=== PATIENT | female | born 1975 | race Caucasian/White ===

== ENCOUNTER → 2018-04-22 10:50 | Outpatient (CLI) | payer BC, SELFPAY ==
--- NOTE | 2018-04-22 10:53 | MM_ITS ---
MM Dig screening mamm BI w/CAD CAD Screening ORDERING PHYSICIAN : Stanley Dalton MD PATIENT AGE: 42 years GENDER: Female INDICATION: 42-year-old with no new complaints. No hormones.. Family history. Paternal grandmother breast cancer age 72 COMPARISON: Baseline mammogram no previous for comparison TECHNIQUE: Standard CC and MLO images were obtained. R2 CAD reviewed. FINDINGS: RIGHT BREAST: Area Labeled A: 14 mm length x 6 mm wide x 9 mm height ovoid low density nodular area is seen at the upper-outer quadrant right breast. This is fairly low-density. Could reflect a small lipid cyst or lymph node or a small low-density cyst of some kind. Doubt significant solid nodule but would benefit from ultrasound to further evaluate. QuestionableArea Labeled B: Question a small area of some faint developing calcifications along with density right breast. This is seen centrally on the MLO view question early laterally on the AP view. Equivocal feature. I would suggest CC and MLO spot views of the the area labeled A;... Along with a magnification 90 degree view of the area labeled B LEFT BREAST:No areas of significant concern on the left follow-up one year on left adequate ------IMPRESSION: -------- Baseline mammogram RIGHT BREAST 1. Vague ovoid nodular density upper-outer quadrant left breast. Warrants spot views & ultrasound. This Area LABELED A 2. There also some questionable faint calcifications at the lateral left breast. Labeled B . Equivocal feature but would benefit from a 90 degrees spot view when patient returns LEFT BREAST: No areas of significant concern. Follow-up in one year recommended on left BI-RADS Categ : 0 Need Additional Imaging Evaluaiton. RECOMMENDED FOLLOW-UP: IMM - IMMEDIATE FOLLOW-UP RECOMMENDED Right mammogram Spot views and subsequent ultrasound (A letter has been sent to the patient regarding results of the study.)
== END ==
PROVIDERS: Family Provider Family Medicine; PCP Family Medicine; Visit Provider Family Medicine
DX: Z12.31 Encounter for screening mammogram for malignant neoplasm of breast (principal)
CPT/HCPCS: 77067

== ENCOUNTER → 2018-05-09 14:14 | Outpatient (CLI) | payer BC, SELFPAY ==
--- NOTE | 2018-05-09 14:27 | MM_ITS ---
MM Dig mamm BI DX w/CAD ORDERING PHYSICIAN : Stanley Dalton MD PATIENT AGE: 42 years GENDER: Female COMPARISON: Recent baseline screening mammogram 04/22/2018 INDICATION: Further evaluate nodularity right breast reported on screening mammogram TECHNIQUE: Spot CC , rolled spot 90 degree ML, and MLO images were obtained. R2 CAD reviewed. FINDINGS: RIGHT BREAST: The the vague asymmetric focal density labeled A in the upper-outer quadrant seems to dissipate on the rolled cc views and of less concern. Not of significant concern & can be followed The other density labeled B with some questionable calcifications is dissipates it is not evident on today's spot views. No significant calcifications identified right breast. Small area of nodularity the deep breast labeled C and measuring less 4.5 mm mm is most likely a small benign features such as intramammary node . Recommend follow-up right mammogram 6 months to confirm stability if these minor observations IMPRESSION: 1. Additional views decreased concern regarding any significant findings at the right breast. Follow-up in 6 months recommended to confirm stability of of the areas of vague density and benign-appearing nodularity right breast. BI-RADS Category: 3 Benign Finding Short Term Follow-up RECOMMENDED FOLLOW-UP: 6M 6 MONTH FOLLOW-UP (A letter has been sent to the patient regarding results of the study.)
== END ==
PROVIDERS: Family Provider Family Medicine; PCP Family Medicine; Visit Provider Family Medicine
DX: R92.8 Other abnormal and inconclusive findings on diagnostic imaging of breast (principal)
CPT/HCPCS: 77066

== ENCOUNTER → 2018-05-20 12:09 | Outpatient (CLI) | payer BC, SELFPAY ==
--- NOTE | 2018-05-20 12:22 | XR_ITS ---
XR foot LT min 3V HISTORY: ITS.REASON: LT FOOT PAIN ORDERING PHYSICIAN: Hodan Gerber PATIENT AGE: 42 years COMPARISON: None FINDINGS: There is a comminuted nondisplaced fracture involving optimal aspect of the proximal phalanx of the fifth digit with good alignment. No other significant anomalies. IMPRESSION: Comminuted nondisplaced fracture proximal phalanx fifth digit
== END ==
PROVIDERS: PCP Family Medicine; Visit Provider Nurse Practitioner Family
DX: M79.671 Pain in right foot (principal)
CPT/HCPCS: 73630

== ENCOUNTER → 2018-06-17 14:16 | Outpatient (CLI) | payer BC, SELFPAY ==
--- NOTE | 2018-06-17 14:22 | XR_ITS ---
XR foot LT min 3V HISTORY: Follow-up fracture ITS.REASON: FX FIFTH TOE ORDERING PHYSICIAN: Hodan Gerber PATIENT AGE: 42 years COMPARISON: 05/20/2018 FINDINGS: Nondisplaced fracture involves the proximal shaft of the proximal phalanx of the fifth toe. Callus formation is developing laterally. There is good alignment. Fracture line is visible at the base of the shaft of the phalanx. No other significant anomalies are evident aside from mild osteoarthritic changes of the first metatarsophalangeal joint. Hypertrophic changes are also present dorsally at the tarsal metatarsal junction. IMPRESSION: Healing nondisplaced fifth toe fracture
== END ==
PROVIDERS: PCP Family Medicine; Visit Provider Nurse Practitioner Family
DX: S92.502A Displaced unspecified fracture of left lesser toe(s), initial encounter for closed fracture (principal)
CPT/HCPCS: 73630

== ENCOUNTER 2020-03-04 09:07 | Emergency (ER) | payer OTHER, SELFPAY ==
[2020-03-04 09:38] VITALS: BP 145/79; PULSE 89; RESP 18; TEMP 36.8; O2SAT 98; BMI 35.5
--- NOTE | 2020-03-04 09:48 | XR_ITS ---
PROCEDURE: XR CHEST 2V CLINICAL HISTORY: sob Shortness of breath, smoker COMPARISON: CXR2V XR chest 2V from 07/12/2018 FINDINGS: The cardiomediastinal silhouette and pulmonary vascularity are within normal limits. The lungs are clear without infiltrates, suspicious nodules, or pleural effusions. There are minimal atelectatic changes in the left lower lobe. There is minimal thickening of the right minor fissure. Mild degenerative changes thoracic spine. IMPRESSION: Mild left basilar atelectasis or fibrosis Dictated by: Sam Davidson MD 03/04/2020 12:03 Electronically signed by Sam Davidson MD in [place] 03/04/2020 12:03
--- NOTE | 2020-03-04 09:52 | ECG_ITS ---
APPROVED REPORT Exam: Resting ECG HR:81 bpm ECG Measurements Heart Rate 81 AXES CA 134 P 26 QRSd 74 QRS 32 QT 364 T -11 QTc 422 <Conclusion> Normal sinus rhythm T wave abnormality, consider inferior ischemia Abnormal ECG Electronically signed by : Lester Grady, 03/05/2020 08:05:59
--- NOTE | 2020-03-04 09:55 | HMH.EDGENADL ---
ED Disposition Clinical Impression: Pyelonephritis Disposition: Home, Self-Care Condition on Discharge: Good Instructions: DI for Kidney Infection Additional Instructions: Tylenol for fever. Rest and drink plenty of fluids. Antibiotic as prescribed. Additional instructions for URINARY TRACT INFECTION: See your physician in 2-3 days for follow up and culture results. Return immediately if you have an uncontrollable fever greater than 102 degrees, severe back or abdominal pain, inability to urinate, or repetitive vomiting. Also return if severe cough or shortness of breath. Prescriptions: Cefdinir [Omnicef 300mg Capsule] 300 mg PO BID #20 cap Transmission Status: Pending to [facility] #[id number] Referrals: Stanley Dalton MD [Primary Care Provider] - - Critical Care Critical Care Time: No Attestation: On 03/04/20, the high probability of a clinically significant, sudden or life threatening deterioration of the following system(s) required my full and direct attention, intervention and personal management. The time I documented below is in addition to time spent performing reported procedures but includes the following listed in this critical care notation. Medical Decision Making - Seth Inquiry Pt receiving controlled substance: No Vital Signs: 03/04/20 09:38 Temperature 98.3 F Temperature Source Oral Pulse Rate [Left Radial] 89 Respiratory Rate 18 Blood Pressure [Right Arm] 145/79 H Blood Pressure Mean [Right Arm] 101 Blood Pressure Position [Right Arm] Sitting 02 Sat by Pulse Oximetry 98 Oxygen Delivery Method Room Air - Lab Data Lab Results 03/04/20 09:30: WBC 15.2 H, RBC 5.01, Hgb 15.2, Hct 45.8, MCV 91.5, MCH 30.3, MCHC 33.2, RDW 13.3, Plt Count 276, MPV 9.1, Neut % (Auto) 76.9, Lymph % (Auto) 12.6, Ward % (Auto) 9.4 H, Eos % (Auto) 0.9, Baso % (Auto) 0.3, Neut # (Auto) 11.7 H, Lymph # (Auto) 1.9, Ward # (Auto) 1.4 H, Eos # (Auto) 0.1, Baso # (Auto) 0.0 03/04/20 09:30: Sodium 136, Potassium 4.1, Chloride 107, Carbon Dioxide 21 L, Anion Gap 12.1, BUN 11, Creatinine 0.90, Estimated Creat Clear 127, Estimated GFR 68, Est GFR ( Amer) 83, Glucose 119 H, Calcium 9.4, Total Bilirubin 0.7, AST 28, ALT 24, Alkaline Phosphatase 86, Troponin I < 0.01, Total Protein 7.6, Albumin 4.0, Globulin 3.6 H, Albumin/Globulin Ratio 1.1, Amylase 34 03/04/20 09:30: Urine Color Yellow, Urine Appearance Sl cloudy, Urine pH 6.0, Ur Specific [place] 1.025, Urine Protein Trace, Urine Glucose (UA) Negative, Urine Ketones Negative, Urine Blood 3+, Urine Nitrate Positive, Urine Bilirubin Negative, Urine Urobilinogen 0.2, Ur Leukocyte Esterase 1+ A, Urine RBC 5-10, Urine WBC 3-5, Ur Squamous Epith Cells 3-5, Urine Bacteria 1+ 03/04/20 09:30: Lactate 1.4 03/04/20 09:30: Lipase 25 03/04/20 09:30: Influenza Type A Ag Negative, Influenza Type B Ag Negative 03/04/20 09:30: Urine HCG, Qual Negative Result diagrams: 03/04/20 09:30 03/04/20 09:30 Orders (Tests/Meds): ED MEDICATIONS Generic Name Dose Route Start Last Admin Trade Name Freq PRN Reason Stop Dose Admin Ceftriaxone Sodium 1 gm/ 50 mls @ 100 mls/hr 03/04/20 10:32 Sodium Chloride IV 03/04/20 11:01 ONCE ONE Protocol ORDERS Category Date Time Status Chest XR 2 view (NOT portable) [XR chest 2V] Stat Exams 03/04/20 09:48 Taken CBC w/Auto Diff [Complete Blood Count Auto Diff] Stat Lab 03/04/20 09:30 Results Troponin I Q3H Lab 03/04/20 13:00 Ordered Troponin I Q3H Lab 03/04/20 16:00 Ordered Blood Culture Stat Micro 03/04/20 09:30 Received Urine Culture Stat Micro 03/04/20 09:30 Received - Radiology Data #1 Image(s): Chest Image Reviewed: Yes I reviewed the patient's radiology image Linear atelectasis versus scar right midlung. No acute infiltrate seen. - ECG Data Tracing #1 EKG interpreted by Quang Tony MD: Rhythm: sinus Rate: 81 [place]: normal Ectopy: none Conduction: normal ST Segment
[2020-03-04 10:01] LABS: Microscopic, Urine URINE MICROSCOPIC (MICROSCOPIC)
[2020-03-04 10:04] LABS: Appearance,Urine SL CLOUDY (Clear); Basophils % 0.3 % (0.1-2.0); Bilirubin,Urine Negative (Negative); Blood, Urine 3+ (Negative); Color,Urine YELLOW (Yellow); Eosinophils # 0.1 K/mm3 (0.0-0.4); Eosinophils % 0.9 % (0.1-12.0); Glucose,Urine (UA) Negative (Negative); Hematocrit 45.8 % (37.0-47.0); Hemoglobin 15.2 g/dL (12.2-16.2); Ketones,Urine Negative (Negative); Leukocyte Esterase,Urine 1+ (Negative); Lymphocytes # 1.9 K/mm3 (0.7-4.5); Lymphocytes % 12.6 % (10-50); Mean Corpuscular HGB Conc 33.2 g/dL (31.8-35.4); Mean Corpuscular Hemoglobin 30.3 pg (27.0-31.2); Mean Corpuscular Volume 91.5 fl (81-99); Mean Platelet Volume 9.1 fl (7.4-10.4); Monocytes # 1.4 K/mm3 (0.1-1.0); Monocytes % 9.4 % (1.7-9.3); Neutrophils # 11.7 K/mm3 (1.8-7.8); Neutrophils % 76.9 % (37.0-80.0); Nitrate,Urine POSITIVE (Negative); Platelet Count 276 K/mm3 (142-424); Protein,Urine TRACE (Negative); Red Blood Count 5.01 M/mm3 (4.20-5.40); Red Cell Distribution Width 13.3 % (11.5-17.5); Specific Gravity, Urine 1.025 (1.005-1.030); Urobilinogen,Urine 0.2 EU/dl (0.2); White Blood Count 15.2 K/mm3 (4.8-10.8)
[2020-03-04 10:05] LABS: MANUAL DIFFERENTIAL MANUAL DIFFERENTIAL (MANUAL DIFF)
[2020-03-04 10:08] LABS: Chloride 107 mmol/L (98-107); Potassium 4.1 mmoL/L (3.5-5.1); Sodium 136 mmol/L (136-145)
[2020-03-04 10:09] LABS: Lipase 25 U/L (23-300)
[2020-03-04 10:10] LABS: Amylase 34 U/L (30-110)
[2020-03-04 10:11] LABS: Alanine Aminotransferase 24 U/L (12-78); Albumin/Globulin Ratio 1.1 (1.1-1.8); Alkaline Phosphatase 86 U/L (38-126); Anion Gap 12.1 mEq/L (5-15); Aspartate Amino Transferase 28 U/L (14-36); Bilirubin,Total 0.7 mg/dl (0.2-1.3); Blood Urea Nitrogen 11 mg/dl (7-17); Calcium 9.4 mg/dl (8.4-10.2); Carbon Dioxide 21 mmol/L (22.0-30.0); Creatinine Clearance Estimated 127 mL/min (50-200); Estimated Glomerular Filt Rate 68 ml/min (>60); GFR (African American) 83 ML/MIN (>60); Globulin 3.6 g/dL (1.3-3.2); Glucose 119 mg/dl (74-100); Total Protein,Serum 7.6 g/dl (6.3-8.2)
[2020-03-04 10:12] LABS: Lactic Acid 1.4 mmol/L (0.7-2.1)
[2020-03-04 10:13] LABS: Urine Pregnancy, HCG Qual. Negative (Negative)
[2020-03-04 10:22] LABS: Troponin I < 0.01 ng/ml (0.00-0.034)
--- NOTE | 2020-03-04 10:22 | PC.NURSE ---
Pt with rad.
[2020-03-04 10:28] LABS: Bacteria,Urine 1+ /lpf
[2020-03-04 11:06] LABS: Lymphocytes % 18 % (10-50); Monocytes % 9 % (2-9); Neutrophils % 73 % (42-76); Platelet Estimate Normal; RBC Morphology Normal; Total Cells Counted 100
[2020-03-04 11:10] VITALS: BP 122/85; PULSE 85; RESP 20; TEMP 36.8; O2SAT 98
== END 2020-03-04 11:11 | disposition home or self-care (01) ==
PROVIDERS: Emergency Provider Emergency Medicine; PCP Family Medicine
DX: N12 Tubulo-interstitial nephritis, not specified as acute or chronic (principal); F17.210 Nicotine dependence, cigarettes, uncomplicated
CPT/HCPCS: 71046; 80053; 81001; 81025; 82150; 83605; 83690; 84484; 85007; 85025; 87040; 87086; 87088; 87186; 87275; 87276; 93005; 96365; 96367; 99284

== ENCOUNTER → 2020-03-09 14:12 | Outpatient (CLI) | payer OTHER, SELFPAY ==
--- NOTE | 2020-03-09 14:15 | XR_ITS ---
PROCEDURE: XR HIP RT 2-3V W/PELVIS CLINICAL INDICATION: RT HIP PAIN Right hip pain worsening COMPARISON: No exams were available for comparison FINDINGS: An AP view of the pelvis shows mild osteoarthritic changes of both hips with an os acetabuli the right. No fracture or dislocation. Degenerative changes are present involving the left SI joint. No lytic or blastic change IMPRESSION: Mild osteoarthritis of the hips Dictated by: Sam Davidson MD 03/09/2020 17:36 Electronically signed by Sam Davidson MD in [place] 03/09/2020 17:36
== END ==
PROVIDERS: PCP Family Medicine; Visit Provider Family Medicine
DX: M25.551 Pain in right hip (principal)
CPT/HCPCS: 73502

== ENCOUNTER → 2020-08-20 14:57 | Outpatient (CLI) | payer OTHER, SELFPAY | PROVIDERS: PCP Family Medicine; Visit Provider Family Medicine | DX: G47.33 Obstructive sleep apnea (adult) (pediatric) (principal); R06.83 Snoring; E66.9 Obesity, unspecified | CPT/HCPCS: 95806 ==

== ENCOUNTER → 2021-06-13 11:53 | Outpatient (CLI) | payer OTHER, SELFPAY ==
--- NOTE | 2021-06-13 12:04 | XR_ITS ---
PROCEDURE: XR LUMBAR SPINE MIN 4V CLINICAL INDICATION: MYALGIA COMPARISON: CT ABDPELWO CT abdomen pelvis wo con from 07/13/2018 CR XR CHEST 2V from 03/04/2020 FINDINGS: There is normal alignment. There is degenerative disc disease and T10-T11 and T11-T12 is well L1-L2 L2-L3, L3-L4, L4-5, and L5-S1. There are anterior osteophytes in the lower thoracic and lumbar spine. Facet arthritic changes are present at L4, L5, and S1. There is some moderate sclerosis involving the inferior aspect of the left SI joint and minimal sclerosis of the right SI joint. On the left posterior oblique view calcification projects over the right kidney measuring approximately 15 mm and may be due to right nephrolithiasis. IMPRESSION: Lumbar spondylosis as described above. Osteoarthritic changes of the SI joints. Suspected right nephrolithiasis which could be confirmed with CT. Dictated by: Sam Davidson MD 06/13/2021 13:50 Sam Davidson MD in [place] 06/13/2021 13:50
== END ==
PROVIDERS: PCP Family Medicine; Visit Provider Family Medicine
DX: M79.10 Myalgia, unspecified site (principal)
CPT/HCPCS: 72110

== ENCOUNTER → 2021-12-05 14:30 | Outpatient (CLI) | payer OTHER, SELFPAY ==
[2021-12-05 15:11] LABS: Basophils # 0.1 K/mm3 (0-0.2); Basophils % 2.4 % (0.1-2.0); Eosinophils # 0.1 K/mm3 (0.0-0.4); Eosinophils % 2.3 % (0.1-12.0); Hematocrit 50.7 % (37.0-47.0); Hemoglobin 16.2 g/dL (12.2-16.2); Lymphocytes # 1.9 K/mm3 (0.7-4.5); Lymphocytes % 37.6 % (10-50); Mean Corpuscular Hemoglobin 30.5 pg (27.0-31.2); Mean Corpuscular Volume 95.3 fl (81-99); Mean Platelet Volume 8.8 fl (7.4-10.4); Monocytes # 0.4 K/mm3 (0.1-1.0); Monocytes % 8.5 % (1.7-9.3); Neutrophils # 2.5 K/mm3 (1.8-7.8); Neutrophils % 49.1 % (37.0-80.0); Platelet Count 309 K/mm3 (142-424); Red Blood Count 5.32 M/mm3 (4.20-5.40); White Blood Count 5.2 K/mm3 (4.8-10.8)
== END ==
PROVIDERS: PCP Family Medicine; Visit Provider Family Medicine
DX: Z20.822 Contact with and (suspected) exposure to COVID-19 (principal)
CPT/HCPCS: 36415; 85025; C9803; U0003; U0005

== ENCOUNTER → 2022-05-09 09:45 | Outpatient (CLI) | payer OTHER, SELFPAY ==
--- NOTE | 2022-05-09 09:48 | US_ITS ---
FINAL REPORT CLINICAL HISTORY: FATTY LIVER FINDINGS: Sonographic images of the right upper quadrant were obtained. The pancreas is partially obscured.The liver is fatty infiltrated.The gallbladder contains sludge.There is no evidence of biliary ductal dilatation.The common duct measures 3 mm. At the right kidney measures 10 cm and is unremarkable. IMPRESSION: Fatty infiltration of the liver. Gallbladder sludge. Reviewed, Interpreted and Dictated by Shailesh Grider III, MD Transcribed by Lynne Cruz Authenticated and [facility]
== END ==
PROVIDERS: PCP Family Medicine; Visit Provider Internal Medicine Gastroenterology
DX: K76.0 Fatty (change of) liver, not elsewhere classified (principal)
CPT/HCPCS: 76705

== ENCOUNTER 2022-05-11 04:21 | Emergency (ER) | payer OTHER, SELFPAY ==
[2022-05-11] VITALS (13 sets, daily range): BP systolic 93–147; BP diastolic 50–83; PULSE 56–71; RESP 16; TEMP 36.8; O2SAT 96–100; BMI 36.8
--- NOTE | 2022-05-11 04:18 | ECG_ITS ---
APPROVED REPORT Exam: Resting ECG HR:61 bpm ECG Measurements Heart Rate 61 AXES MT 143 P 69 QRSd 75 QRS 28 QT 397 T -75 QTc 400 Conclusion SINUS RHYTHM POSSIBLE RIGHT VENTRICULAR CONDUCTION DELAY [RSR (QR) IN V1/V2] Inferior T wave changes noted previously Abn ecg Electronically signed by : Lester Grady MD 05/11/2022 08:24:45
--- NOTE | 2022-05-11 04:22 | XR_ITS ---
PROCEDURE INFORMATION: Exam: XR Chest Exam date and time: 05/11/2022 4:32 AM Age: 46 years old Clinical indication: Sternal or substernal pain; Prior surgery; Surgery date: 3-7 days post-operative; Surgery type: Stents; Additional info: Cp TECHNIQUE: Imaging protocol: Radiologic exam of the chest. Views: 1 view. COMPARISON: CR XR CHEST 2V 03/04/2020 10:13 AM FINDINGS: Lungs: Mild linear atelectasis/fibrosis. No new focal consolidation. Pleural spaces: No pneumothorax. Heart/Mediastinum: Unremarkable. No cardiomegaly. Bones/joints: No acute fracture. IMPRESSION: No acute process.
[2022-05-11 04:40] LABS: Basophils # 0.2 K/mm3 (0-0.2); Basophils % 2.2 % (0.1-2.0); Eosinophils # 0.2 K/mm3 (0.0-0.4); Eosinophils % 1.4 % (0.1-12.0); Hematocrit 50.2 % (37.0-47.0); Lymphocytes # 4.6 K/mm3 (0.7-4.5); Mean Corpuscular HGB Conc 33.8 g/dL (31.8-35.4); Mean Corpuscular Hemoglobin 31.4 pg (27.0-31.2); Mean Corpuscular Volume 92.8 fl (81-99); Mean Platelet Volume 8.2 fl (7.4-10.4); Monocytes # 0.6 K/mm3 (0.1-1.0); Monocytes % 5.6 % (1.7-9.3); Neutrophils # 5.3 K/mm3 (1.8-7.8); Neutrophils % 48.7 % (37.0-80.0); Platelet Count 376 K/mm3 (142-424); Red Blood Count 5.41 M/mm3 (4.20-5.40); Red Cell Distribution Width 13.8 % (11.5-17.5); White Blood Count 10.9 K/mm3 (4.8-10.8)
[2022-05-11 04:47] LABS: Anion Gap 13.8 mEq/L (5-15); Blood Urea Nitrogen 11 mg/dl (7-17); Calcium 9.8 mg/dl (8.4-10.2); Carbon Dioxide 24 mmol/L (22.0-30.0); Chloride 102 mmol/L (98-107); Creatinine Clearance Estimated 120 mL/min (50-200); Estimated Glomerular Filt Rate 60 ml/min (>60); GFR (African American) 73 ML/MIN (>60); Glucose 120 mg/dl (74-100); Potassium 3.8 mmoL/L (3.5-5.1); Sodium 136 mmol/L (136-145)
[2022-05-11 05:06] LABS: Troponin I 0.01 ng/ml (0.00-0.034)
--- NOTE | 2022-05-11 05:09 | PC.NURSE ---
rounded on pt at this time. Updated her on lab results. at bedside, pt is pain free and has no new needs.
--- NOTE | 2022-05-11 05:57 | PC.NURSE ---
rounded on pt at this time and let her know we would be drawing her 2nd troponin in approx. 30 mins. Pt denies any pain at this time and is agreeable with POC. No new needs
--- NOTE | 2022-05-11 07:05 | PC.NURSE ---
Updated pt on POC and that 2nd troponin would be back in approx. 5mins. No new needs at this time
[2022-05-11 07:10] LABS: Troponin I 0.06 ng/ml (0.00-0.034)
--- NOTE | 2022-05-11 07:13 | HMH.EDCP ---
ED Disposition Condition on Discharge: Good - Critical Care Critical Care Time: No <MiraRonni - Last Filed: 05/11/22 08:20> Condition on Discharge: Good - Critical Care Critical Care Time: No <RoldanHuang - Last Filed: 05/11/22 10:23> Clinical Impression: NSTEMI (non-ST elevated myocardial infarction) Chest pain Qualifiers: Chest pain type: precordial pain Qualified Code(s): R07.2 - Precordial pain CAD (coronary artery disease) Qualifiers: Coronary Disease-Associated Artery/Lesion type: [place] artery [place] vs. transplanted heart: [place] heart Associated angina: without angina Qualified Code(s): I25.10 - Atherosclerotic heart disease of [place] coronary artery without angina pectoris Disposition: Xfer Short-Term Hosp Instructions: DI for Chest Pain Referrals: Stanley Dalton MD [Primary Care Provider] - Attestation: On 05/11/22, the high probability of a clinically significant, sudden or life threatening deterioration of the following system(s) required my full and direct attention, intervention and personal management. The time I documented below is in addition to time spent performing reported procedures but includes the following listed in this critical care notation. Medical Decision Making - Medical Records Medical records reviewed: Yes: I reviewed the patient's medical records. - Seth Inquiry Pt receiving controlled substance: No - Lab Data Lab results reviewed: Yes: I reviewed the patient's lab results. Result diagrams: 05/11/22 04:29 05/11/22 04:29 - Radiology Data #1 Image(s): Chest Image Reviewed: Yes I have reviewed radiologist's interpretation Preliminary Findings: Normal/NAD - ECG Data Tracing #1 Normal Sinus Rhythm: Yes Ischemic changes: non-specific ST-T wave changes, t wave inversions ECG compared to prior tracings: there are no significant changes - Physician Consults Physician Consulted: card incident response engineer - dr varela Reason -: Pt condition <MiraRonni - Last Filed: 05/11/22 08:20> - Medical Records Medical records reviewed: Yes: I reviewed the patient's medical records. - Seth Bergeron Pt receiving controlled substance: No - Lab Data Result diagrams: 05/11/22 04:29 05/11/22 04:29 - Reevaluation(s) Time: 10:23 (reeval, vss, appears well, discussed with hospitalist [facility] accepts obs) <Sal Montilla - Last Filed: 05/11/22 10:23> Vital Signs: 05/11/22 04:21 05/11/22 04:25 05/11/22 05:56 Temperature 98.2 F Temperature Source Oral Pulse Rate 59 L 56 L Pulse Rate [Right] 62 Respiratory Rate 16 16 16 Blood Pressure 111/50 L 117/65 Blood Pressure [Right Arm] 138/83 Blood Pressure Mean Blood Pressure Mean [Right Arm] 101 Blood Pressure Source Automatic Cuff Automatic Cuff Blood Pressure Source [Right Arm] Automatic Cuff Blood Pressure Position Sitting Sitting Blood Pressure Position [Right Arm] Sitting 02 Sat by Pulse Oximetry 100 97 98 Oxygen Delivery Method Room Air Room Air 05/11/22 06:35 05/11/22 06:52 05/11/22 07:01 Temperature Temperature Source Pulse Rate 66 63 62 Pulse Rate [Right] Respiratory Rate 16 Blood Pressure 93/58 L 100/58 L 115/74 Blood Pressure [Right Arm] Blood Pressure Mean 69 85 Blood Pressure Mean [Right Arm] Blood Pressure Source Automatic Cuff Blood Pressure Source [Right Arm] Blood Pressure Position Sitting Blood Pressure Position [Right Arm] 02 Sat by Pulse Oximetry 99 98 96 Oxygen Delivery Method Room Air Room Air 05/11/22 07:30 05/11/22 08:02 05/11/22 08:30 Temperature Temperature Source Pulse Rate 65 67 71 Pulse Rate [Right] Respiratory Rate Blood Pressure 120/73 126/59 L 131/54 L Blood Pressure [Right Arm] Blood Pressure Mean 90 81 75 Blood Pressure Mean [Right Arm] Blood Pressure Source Blood Pressure Source [Right Arm] Blood Pressure Position Blood Pressure Position [Right Arm] 02 Sat by P
--- NOTE | 2022-05-11 07:25 | ECG_ITS ---
APPROVED REPORT Exam: Resting ECG HR:63 bpm ECG Measurements Heart Rate [address] 163 P 46 QRSd 82 QRS 44 QT 410 T -25 QTc 417 Conclusion SINUS RHYTHM MODERATE T-WAVE ABNORMALITY, CONSIDER LATERAL ISCHEMIA [-0.1+ mV T-WAVE IN I/aVL/V5/V6] ABNORMAL ECG UNCONFIRMED REPORT Electronically signed by : Lester Grady MD 05/11/2022 08:23:30
--- NOTE | 2022-05-11 07:30 | PC.NURSE ---
pt resting family at bedside offers no c/o at present
--- NOTE | 2022-05-11 07:42 | PC.NURSE ---
Calling [facility] to get in touch with 's S[employer] Drier Feeder, Dr. Gutierrez or whomever may be fire protection specialist for them this date. Awaiting a call back
--- NOTE | 2022-05-11 07:49 | PC.NURSE ---
Dr. Meyers speaking with Dr. Altamirano, Machine Shop Supervisor from [facility] at this time
--- NOTE | 2022-05-11 07:55 | PC.NURSE ---
Dr. Meyers speaking to patient at BS regarding update on POC
--- NOTE | 2022-05-11 09:20 | PC.NURSE ---
3rd trop drawn pt offers no c/o at present
--- NOTE | 2022-05-11 10:02 | PC.NURSE ---
Spoke with Lissa with [facility] to have the non linear editor assistant editor paged again regarding patients 3rd troponin enzymes
--- NOTE | 2022-05-11 10:13 | PC.NURSE ---
Lissa with the [facility] called us back to have the ER MD speak with the hospitalist at this time, she reports the Physician requested for the hospitalist for possible patient transfer. Dr. Montilla is speaking with Dr. Pandey.
--- NOTE | 2022-05-11 10:16 | PC.NURSE ---
family at BS; patient up talking on the phone, has no needs at this time.
--- NOTE | 2022-05-11 10:28 | PC.NURSE ---
Awaitng a call back from [facility] regarding bed status
--- NOTE | 2022-05-11 10:29 | PC.NURSE ---
Faxed pt facesheet to [facility] access center: [phone]
--- NOTE | 2022-05-11 10:40 | PC.NURSE ---
spoke with hope in [facility] and she gave me a bad assignment and number to call report
--- NOTE | 2022-05-11 10:45 | PC.NURSE ---
updated pt on POC
[2022-05-11 10:50] LABS: Coronavirus 19, PCR Not Detected (NotDetected); Influenza A, PCR Not Detected (NotDetected); Influenza B, PCR Not Detected (NotDetected)
--- NOTE | 2022-05-11 10:52 | PC.NURSE ---
report called to [facility]
--- NOTE | 2022-05-11 11:05 | PC.NURSE ---
Called Radiology for disc; placed in packet
--- NOTE | 2022-05-11 11:23 | PC.NURSE ---
[facility]
== END 2022-05-11 11:29 | disposition short-term general hospital (02) ==
PROVIDERS: Emergency Provider Emergency Medicine; PCP Family Medicine
DX: R07.2 Precordial pain (principal); I25.10 Atherosclerotic heart disease of native coronary artery without angina pectoris; Z79.82 Long term (current) use of aspirin; Z79.899 Other long term (current) drug therapy; G43.909 Migraine, unspecified, not intractable, without status migrainosus
CPT/HCPCS: 71045; 80048; 84484; 85025; 93005; 96372; 99283; C9803; U0003; U0005

== ENCOUNTER 2022-05-26 08:11 | Day surgery (SDC) | payer OTHER, SELFPAY ==
[2022-05-26] VITALS (54 sets, daily range): BP systolic 100–218; BP diastolic 57–134; PULSE 99–116; RESP 10–32; TEMP -17.7–0; O2SAT 94–100; BMI 34.9
--- NOTE | 2022-05-26 | IR_ITS ---
APPROVED REPORT Patient Location: Emergent [place] Man: YAYO Pena RT (R) PROCEDURES Left ventriculogram Selective coronary angiogram Left heart catheterization Right femoral arterial access Placement of intra-aortic balloon pump Left femoral arterial access Removal of intra-aortic balloon pump INDICATION Sudden cardiac , Cardiogenic shock, Known coronary artery disease, Status post cardiac resuscitation Informed consent was obtained prior to the procedure. TECHNIQUE Patient was in the emergency room and presented in full cardiac arrest with chest compressions after sustaining what appeared to be a V. fib arrest. Patient's administered CPR and witnessed patient's sudden cardiac . When EMS arrived it is reported patient was in V. fib arrest and CPR was initiated. I was contacted after patient had adventist of blood pressure. Upon arrival in the emergency department patient was intubated and in PEA. Epinephrine restored blood pressure. At this point it was decided to place an intra-aortic balloon pump. It was known patient had bilateral iliac artery stents the day before and apparently a cardiac stent for what sounds like a myocardial infarction within the last month. While in the emergency department the right groin was sterilely prepped and the right femoral artery was accessed via the Salinger technique. An intra-aortic balloon pump was estimated for placement and then inserted and placed in a one-to-one ratio. Patient had adventist of blood pressure and was immediately taken to the [facility] for diagnostic and possible therapeutic angiography. While in the emergency department 1% lidocaine was used anesthetize the left groin the left femoral was accessed via the sounder technique and a 6 [place] sheath was placed in the left femoral artery. The JR4 JR4 catheter was used to perform left heart catheterization left ventriculogram and selective coronary angiogram. At the end of the procedure after seeing patient had VIKRAM-3 flow down all the coronary arteries with normal to slightly hyperdynamic ventricular function as well as hypertension with blood pressure is 189/113 it was decided to pull the intra-aortic balloon pump. At bedside echo also confirmed hyperdynamic ventricular function with no associated regional wall motion abnormalities. Patient did require 2 mg of Versed for slight agitation during arterial access in the left groin. Blood gases were submitted and sodium bicarb was administered to help correct the acid-base ANGIOGRAPHIC RESULTS The left main artery Normal The left anterior descending artery Has proximal 10% luminal irregularities with mid vessel 10% luminal regularities accompanied by VIKRAM-3 flow The circumflex artery Nondominant yet still large vessel giving rise to 2 large terminal obtuse marginal arteries. The circumflex artery has proximal and mid vessel 10% stenosis The right coronary artery Is a dominant vessel and has a mid vessel 30% concentric stenosis accompanied by VIKRAM-3 flow distally the posterior descending artery has diffuse 10 to 20% stenosis The KAUFMAN ventriculogram reveals Hyperdynamic at 70% The left ventricular end-diastolic pressure 40 mmHg IMPRESSION Widely patent coronary arteries as described above accompanied by VIKRAM-3 flow Hyperdynamic ventricle Severely elevated LVEDP in the setting of pH of 7.1 with the acidemia likely causing the diastolic dysfunction PLAN 1. Continue supportive care 2. Wean ventilator as tolerated 3. Patient is COVID-positive and had an extensive peripheral artery revascularization procedure which included bilateral iliac artery stenting with a abdominal aortic bifurcation reconstruction.
--- NOTE | 2022-05-26 08:11 | PC.NURSE ---
0811- pt arrived via ems, cpr in progress 0812-epi given 0813- pulse check + pulse HR 127 0815-ekg performed 0816-dr. campos paged 0818-ER MD speaking with dr. campos 0820-notified woven label designer dr. campos on his way in, wants to place balloon pump. spoke with la 0820-lost pulse, cpr started 0822-epi given 0824-bicarb given x2 amps 0824-pulse check - + pulse HR 130 0827- bp 162/117 hr 115 saO2 100%-ambu bag 0829-portable cxr, helton catheter placed 0830-lost pulse PEA, cpr started 0830-epi given, VBG results given to ER MD per RT at BS 0832-pulse check, + HR 136, bicarb given 0833- bp 167/94 HR 132 0836- bp 170/107 HR 136 0838- lost pulse, PEA, epig given 0840- pulse + HR 140 0840- woven label designer staff prepping pt for balloon pump insertion 0841- dr. campos at BS 0842- dr. campos gaining access for balloon pump in R groin 0844- bp 113/72 HR 113, bicarb given 0848- bp 111/67 HR 113- pt hooked up to balloon pump per woven label designer staff 0852- heparin bolus 80285 units given per IV per dr. campos verbal order 0857- pt being transported to woven label designer via stretcher, on balloon bump, monitoring on zoll, RT staff bagging pt. Transported per eran almanza, rn and eran britton (woven label designer nursing staff). louie,rt and nikrt monitoring resp status and bagging pt during transport.
--- NOTE | 2022-05-26 08:11 | PC.NURSE ---
08-pt arrived via EMS- EMS states pt was in Vfib on their arrival to pt, 1 shock given. Pt initiated CPR lpta of EMS. IO in LLE 7.[address] Epi x2 doses given -reports pt was d/c from [facility] yesterday, pt reports pt had 2 stents placed. cpr in progess upon pt arrival to ED
--- NOTE | 2022-05-26 08:24 | ECG_ITS ---
APPROVED REPORT Exam: Resting ECG HR:140 bpm ECG Measurements Heart Rate 140 AXES CA 157 P 3 QRSd 130 QRS -41 QT 204 T 120 QTc 286 Conclusion SINUS TACHYCARDIA, POSSIBLE ATRIAL FLUTTER LEFT AXIS DEVIATION [QRS AXIS < -30] MODERATE INTRAVENTRICULAR CONDUCTION DELAY [105+ ms QRS DURATION, 80+ ms Q/S IN V1/V2, NO Q AND 60+ ms R IN I/aVL/V5/V6] MARKED ST DEPRESSION, CONSIDER SUBENDOCARDIAL INJURY [0.2+ mV ST DEPRESSION] ACUTE PA INTERPRETATION BASED ON A DEFAULT AGE OF 41 YEARS UNCONFIRMED REPORT Electronically signed by : Lester Grady MD 05/29/2022 14:09:51
--- NOTE | 2022-05-26 08:24 | PC.NURSE ---
Blood sent to lab. Notified lab there were no labels but we had handwrote on the blood
--- NOTE | 2022-05-26 08:24 | PC.NURSE ---
Spoke with Teresita in builder's labourer
--- NOTE | 2022-05-26 08:26 | PC.NURSE ---
speaking with Dr. Collier at this time
--- NOTE | 2022-05-26 08:30 | PC.NURSE ---
TEO Mejía calling [facility] attempting
--- NOTE | 2022-05-26 08:33 | PC.NURSE ---
TEO Frank and TEO Ramos from optical lab technician at bedside
--- NOTE | 2022-05-26 08:34 | PC.NURSE ---
speaking with [facility] artist consultant
--- NOTE | 2022-05-26 08:34 | PC.NURSE ---
speaking with [place] [facility]. Updated as to what was going on at this time. (TEO Mejía)
--- NOTE | 2022-05-26 08:38 | PC.NURSE ---
Meds updated per list provided by marsha
--- NOTE | 2022-05-26 08:41 | PC.NURSE ---
Dr. Collier at bedside
[2022-05-26 08:42] LABS: Basophils # 0.2 K/mm3 (0-0.2); Basophils % 3.2 % (0.1-2.0); Eosinophils # 0.1 K/mm3 (0.0-0.4); Eosinophils % 0.9 % (0.1-12.0); Hematocrit 53.6 % (37.0-47.0); Hemoglobin 15.5 g/dL (12.2-16.2); Lymphocytes % 72.4 % (10-50); Mean Corpuscular HGB Conc 28.9 g/dL (31.8-35.4); Mean Corpuscular Hemoglobin 30.8 pg (27.0-31.2); Mean Corpuscular Volume 106.6 fl (81-99); Mean Platelet Volume 9.6 fl (7.4-10.4); Monocytes # 0.5 K/mm3 (0.1-1.0); Monocytes % 7.2 % (1.7-9.3); Neutrophils # 1.1 K/mm3 (1.8-7.8); Neutrophils % 16.3 % (37.0-80.0); Platelet Count 183 K/mm3 (142-424); Red Blood Count 5.02 M/mm3 (4.20-5.40); Red Cell Distribution Width 13.7 % (11.5-17.5)
[2022-05-26 08:44] LABS: MANUAL DIFFERENTIAL MANUAL DIFFERENTIAL (MANUAL DIFF)
[2022-05-26 08:46] LABS: Anion Gap 34.6 mEq/L (5-15); Blood Urea Nitrogen 12 mg/dl (7-17); Calcium 9.5 mg/dl (8.4-10.2); Chloride 102 mmol/L (98-107); Creatinine Clearance Estimated 51 mL/min (50-200); Estimated Glomerular Filt Rate 25 ml/min (>60); GFR (African American) 31 ML/MIN (>60); Glucose 339 mg/dl (74-100); Potassium 3.6 mmoL/L (3.5-5.1); Sodium 142 mmol/L (136-145)
[2022-05-26 08:48] LABS: Influenza A, PCR Not Detected (NotDetected); Influenza B, PCR Not Detected (NotDetected)
--- NOTE | 2022-05-26 08:48 | PC.NURSE ---
Updated that Dr. Collier was at bedside. Lab called and reported critical CO2 of 9. Repeated verified and notified
[2022-05-26 08:49] LABS: Carbon Dioxide 9 mmol/L (22.0-30.0)
--- NOTE | 2022-05-26 08:50 | PC.NURSE ---
Pt being prepped to be transported to outside laborer with Dr Collier and outside laborer team at bedside
--- NOTE | 2022-05-26 08:51 | PC.NURSE ---
Notified echo Dr. Collier needed them at bedside stat
--- NOTE | 2022-05-26 08:57 | PC.NURSE ---
Pt being transported via stretcher to supervisor labor gang at this time. laboratory worker team at bedside for transport.
--- NOTE | 2022-05-26 08:58 | HMH.EDGENADL ---
ED Disposition Clinical Impression: Cardiac arrest Disposition: Still a Patient Condition on Discharge: Critical - Critical Care Critical Care Time: Yes Attestation: On 05/26/22, the high probability of a clinically significant, sudden or life threatening deterioration of the following system(s) required my full and direct attention, intervention and personal management. The time I documented below is in addition to time spent performing reported procedures but includes the following listed in this critical care notation. I was constantly in attendance and involved in treating the patient during her entire stay in the emergency department. Total Critical Care Time: 45 Vital system(s) involved:: Circulatory Failure, Respiratory Failure My critical care processes included: Assessment & monitoring of V/S, Initial and Re-exams, Data Review/Interpretation, Coordinating Care, Medication Orders and management, Documentation Medical Decision Making - Seth Inquiry Pt receiving controlled substance: No Vital Signs: 05/26/22 08:57 Temperature 0 F L Pulse Rate 113 H Respiratory Rate 18 Blood Pressure 111/67 Oxygen Delivery Method Ambu-Bag - Lab Data Lab Results 05/26/22 08:25: WBC 7.0, RBC 5.02, Hgb 15.5, Hct 53.6 H, MCV 106.6 H, MCH 30.8, MCHC 28.9 L, RDW 13.7, Plt Count 183, MPV 9.6, Neut % (Auto) 16.3 L, Lymph % (Auto) 72.4 H, Jenkins % (Auto) 7.2, Eos % (Auto) 0.9, Baso % (Auto) 3.2 H, Neut # (Auto) 1.1 L, Lymph # (Auto) 5.0 H, Jenkins # (Auto) 0.5, Eos # (Auto) 0.1, Baso # (Auto) 0.2, Total Counted 100, Neutrophils % (Manual) 13 L, Band Neutrophils % 2.0, Lymphocytes % (Manual) 77 H, Monocytes % (Manual) 7, Metamyelocytes % 1.0, Platelet Estimate Normal, Hypochromasia 1+, Poikilocytosis 1+, Anisocytosis 1+, Macrocytosis 1+ 05/26/22 08:25: Sodium 142, Potassium 3.6, Chloride 102, Carbon Dioxide 9 L*, Anion Gap 34.6 H, BUN 12, Creatinine 2.10 H, Estimated Creat Clear 51, Estimated GFR 25 L, Est GFR ( Amer) 31 L, Glucose 339 H, Calcium 9.5, Troponin I 0.60 H 05/26/22 08:30: VBG pH 6.58 L, VBG pCO2 81.6 H, VBG pO2 49.9 H, VBG HCO3 7.5 L, VBG Total CO2 10.0 L, VBG O2 Saturation 45.3 L, VBG Base Excess -30.6 L 05/26/22 08:41: SARS-CoV-2 (PCR) Detected A, Influenza A Untype (PCR) Not detected, Influenza Type B (PCR) Not detected 05/26/22 09:20: Specimen Source A line, O2 % 100, ABG pH 7.07 L*, ABG pCO2 32.3 L, ABG pO2 150.1 H, ABG HCO3 9.2 L, ABG Total CO2 10.2 L, ABG O2 Saturation 98, ABG Base Excess -20.9 L, Vent Rate 24, Tidal Volume 440, PEEP 5 Result diagrams: 05/26/22 08:25 05/26/22 08:25 Orders (Tests/Meds): ED MEDICATIONS Generic Name Dose Route Start Last Admin Trade Name Freq PRN Reason Stop Dose Admin Sodium Nitroprusside 50 mg/ 252 mls @ 8.641 mls/hr 05/26/22 11:00 05/26/22 11:10 Dextrose IV 06/25/22 10:59 0.3 mcg/kg/min .Q24H VELMA 8.64 mls/hr Administration Protocol 0.3 MCG/KG/MIN Heparin Sodium/Dextrose 500 mls @ 20 mls/hr 05/26/22 12:15 05/26/22 09:15 Heparin 25,000 Units In D5w 500ml Premix IV 06/25/22 12:14 20 mls/hr .Q25H VELMA Administration 1,000 UNITS/HR Discontinued Medications Generic Name Dose Route Start Last Admin Trade Name Freq PRN Reason Stop Dose Admin Diphenhydramine HCl 50 mg 05/26/22 08:28 05/26/22 09:36 Diphenhydramine 50mg/Ml Vial IV 05/26/22 08:29 50 mg ONCE ONE Administration Epinephrine HCl 1 mg 05/26/22 08:11 05/26/22 08:38 Epinephrine 0.1 Mg/Ml 10ml Syringe (Crash Cart) IV 05/26/22 09:00 1 mg NEEDED PRN Administration Code Blue Med Administration Fentanyl Citrate 25 mcg 05/26/22 08:28 Fentanyl 100mcg/2ml Vial IV 05/27/22 08:28 Q3MINP PRN Moderate to Severe Pain Fentanyl Citrate 50 mcg 05/26/22 08:28 05/26/22 12:13 Fentanyl 100mcg/2ml Vial IV 05/27/22 08:28 25 mcg Q3MINP PRN Administration Moderate to Severe Pain Fentanyl Citrate 25 mcg 05/26/22 08:28 Fentanyl 250mcg/5ml
[2022-05-26 09:00] LABS: Anisocytosis 1+; Lymphocytes % 77 % (10-50); Macrocytosis 1+; Monocytes % 7 % (2-9); Neutrophils % 13 % (42-76); Total Cells Counted 100
[2022-05-26 09:01] LABS: Hypochromasia 1+; Platelet Estimate Normal; Poikilocytosis 1+
[2022-05-26 09:12] LABS: Coronavirus 19, PCR Detected (NotDetected)
--- NOTE | 2022-05-26 09:16 | XR_ITS ---
FINAL REPORT CLINICAL HISTORY: post code COMPARISON: May 11, 2022 FINDINGS: Multiple overlying artifacts makes evaluation more difficult. An ET tube is present. The tip of the tube is difficult to visualize but appears to terminate approximately 1.2 cm superior to the drew. The heart size is normal. The mediastinum is normal. There are bilateral pulmonary opacities, greater on the left, favoring edema over pneumonia. There is no pneumothorax. There is no osseous abnormality. IMPRESSION: Suboptimal exam. Bilateral pulmonary opacities favoring edema over pneumonia. Poorly visualized ETT tip appears to terminate 1.2 cm superior to the drew. Reviewed, Interpreted and Dictated by Shailesh Grider III, MD Transcribed by Dru Amaya Authenticated and [facility]
--- NOTE | 2022-05-26 09:33 | PC.NURSE ---
Notified parking lot laborer staff of pt's positive covid results
--- NOTE | 2022-05-26 09:33 | PC.NURSE ---
KAR MELLO speaking with dr. jonhs
--- NOTE | 2022-05-26 09:58 | SUR.PHASEII ---
CALLED ADMISSION TO GET PATIENT A BED
[2022-05-26 10:51] LABS: VBG PH 6.58 mmol/L (7.31-7.41)
[2022-05-26 10:52] LABS: VBG Base Excess -30.6 mmol/L (-2.4-2.3); VBG HCO3 7.5 mmol/L (23-30); VBG Oxygen Saturation 45.3 % (50-70); VBG PCO2 81.6 mmol/L (35-51); VBG PO2 49.9 mmol/L (28-40)
[2022-05-26 10:53] LABS: ABG Base Excess -20.9 mmol/L (-2.4-2.3); ABG HCO3 9.2 mmhg (22.0-26.0); ABG Oxygen Saturation 98 % (90-100); ABG PCO2 32.3 mmhg (35.0-45.0); ABG PH 7.07 mmol/L (7.35-7.45); ABG PO2 150.1 mmhg (80-100); ABG TCO2 10.2 mmhg (23-27); Oxygen 100 %; PEEP 5; Tidal Volume 440; Vent Rate 24
[2022-05-26 10:54] LABS: Source A LINE
[2022-05-26 10:54] LABS: ABG HCO3 14.4 mmhg (22.0-26.0); ABG PCO2 33.7 mmhg (35.0-45.0); ABG PH 7.25 mmol/L (7.35-7.45); ABG PO2 127.2 mmhg (80-100); ABG TCO2 15.4 mmhg (23-27)
[2022-05-26 10:55] LABS: ABG Base Excess -12.9 mmol/L (-2.4-2.3); ABG Oxygen Saturation 98 % (90-100); Oxygen 100 %; PEEP 5; Source LINE; Tidal Volume 440; Vent Rate 24
--- NOTE | 2022-05-26 11:10 | SUR.PHASEII ---
NIPRIDE GTT STARTED, MD STATES TO TITRATE TO A SYSTOLIC OF 140
--- NOTE | 2022-05-26 11:20 | SUR.PHASEII ---
NIPRIDE GTT STOPPED D/T SYSTOLIC BP 130S
--- NOTE | 2022-05-26 11:20 | HMH.PHAINT ---
MEDICATION RECONCILIATION COMPLETED ON PATIENT USING EXTERNAL FILL HISTORY FROM PHARMACY. -JEANNE DEL CASTILLO, HECTORD
--- NOTE | 2022-05-26 11:23 | HMH.PHAVTE ---
[facility] Pharmacy VTE Monitoring - Patient Demographics Admission date: 05/26/22 Report Date: 05/26/22 Time: 11:23 Allergies/Adverse Reactions: Patient Allergies No Known Allergies Allergy (Verified 08/30/20 09:14) Height: 1.65 m Weight: 95.254 kg Patient Problems: Current Active Problems Cardiac arrest (Acute) - VTE Risk Labs: VTE Related Lab Results Hgb 15.5 g/dL (12.2-16.2) 05/26/22 08:25 Hct 53.6 % (37.0-47.0) H 05/26/22 08:25 Plt Count 183 K/mm3 (142-424) 05/26/22 08:25 BUN 12 mg/dl (7-17) 05/26/22 08:25 Creatinine 2.10 mg/dl (0.52-1.04) H 05/26/22 08:25 Estimated Creat Clear 51 mL/min (50-200) 05/26/22 08:25 - Prophylaxis VTE Prophylaxis Ordered?: Yes Types of VTE Prophylaxis: TEDS Knee High Location of Applied Device: Bilateral Lower Extremeties
--- NOTE | 2022-05-26 11:30 | SUR.PHASEII ---
CALL [facility] TO ARRANGE TRANSPORT, DENIED TRANSPORT R/T [facility]
--- NOTE | 2022-05-26 11:37 | SUR.PHASEII ---
GAVE REPORT TO MASSIMO LOUIE RN [facility]
--- NOTE | 2022-05-26 11:46 | SUR.PHASEII ---
NOTIFIED [facility] FOR TRANSPORT, ANA ZEPEDA TO RIDE WITH PT TO TRANSPORT.
--- NOTE | 2022-05-26 11:50 | SUR.PHASEII ---
PT NOTED TO HAVE SOFTBALL SIZE HEMATOMA NOTED TO HER RIGHT GROIN AROUND SHEATH, DR OVIEDO NOTIFIED STATED TO STOP THE HEPARIN GTT AND APPLY PRESSURE TO GROIN.
--- NOTE | 2022-05-26 12:27 | SUR.PHASEII ---
8F SHEATH REMAINS IN PLACE PER MD, NO HEMATOMA NOTED
--- NOTE | 2022-05-26 12:38 | SUR.PHASEII ---
[facility] HERE TO TRANSPORT PT
--- NOTE | 2022-05-26 13:02 | SUR.PHASEII ---
PT LEFT PER [facility], WITH WINDOW CLERK Ankit ZEPEDA
[2022-05-26 13:14] LABS: CATHL Activated Clotting Time 341 SEC (74-125)
== END 2022-05-26 13:02 | disposition short-term general hospital (02) ==
LOC: ER 09:10 → CATHLAB 09:59 → ICU 10:04
PROVIDERS: Emergency Provider Emergency Medicine; PCP Family Medicine; Visit Provider Internal Medicine
DX: I21.4 Non-ST elevation (NSTEMI) myocardial infarction (principal); I46.9 Cardiac arrest, cause unspecified; U07.1 COVID-19; R57.0 Cardiogenic shock; I26.99 Other pulmonary embolism without acute cor pulmonale; I25.10 Atherosclerotic heart disease of native coronary artery without angina pectoris; Z95.5 Presence of coronary angioplasty implant and graft; Z95.820 Peripheral vascular angioplasty status with implants and grafts; I10 Essential (primary) hypertension; Z79.899 Other long term (current) drug therapy; Z20.822 Contact with and (suspected) exposure to COVID-19
CPT/HCPCS: 31500; 33967; 33968; 36620; 51702; 71045; 80048; 82803; 84484; 85007; 85025; 85347; 93005; 93458; 94002; 99152; 99153; 99291; C1725; C1760; C1769; C1894; C9803; J1644; Q9967; U0003; U0005